=== PATIENT | female | born 1960 ===

== ENCOUNTER 2021-07-02 12:42 | Day surgery (SDC) | payer OTHER ==
--- NOTE | 2021-07-02 10:36 | PCM.PREANE ---
Preanesthetic Assessment - Procedure Proposed Procedure: Cyst excision of anterior chest - Anesthesia/Transfusion/Family Hx Anesthesia History: Prior Anesthesia Without Reaction Family History of Anesthesia Reaction: No Transfusion History: No Prior Transfusion(s) Intubation History: Unknown - Review of Systems General: No Symptoms Pulmonary: No Symptoms Cardiovascular: No Symptoms Gastrointestinal: No Symptoms Neurological: No Symptoms Other: Reports: Depression - Physical Assessment NPO Status Date: 07/01/21 NPO Status Time: 20:00 Vital Signs: BP 139/79 HR 44 98% 16 98.7 Height: 1.6 m Weight: 65 kg ASA Class: 2 Mental Status: Alert & Oriented x3 Airway Class: Mallampati = 2 Dentition: Reports: Caries Thyro-Mental Finger Breadths: 3 Mouth Opening Finger Breadths: 3 ROM/Head Extension: Full Lungs: Clear to Auscultation, Normal Respiratory Effort Cardiovascular: Regular Rate, Regular Rhythm, No Murmurs - Allergies Allergies/Adverse Reactions: Allergies Allergy/AdvReac Type Severity Reaction Status Date / Time No Known Allergies Allergy Verified 02/09/16 11:23 - Acknowledgements Anesthesia Type Planned: MAC Pt an Appropriate Candidate for the Planned Anesthesia: Yes Alternatives and Risks of Anesthesia Discussed w Pt/Guardian: Yes Pt/Guardian Understands and Agrees with Anesthesia Plan: Yes PreAnesthesia Questionnaire HEENT History: Reports: Allergic Rhinitis, Impaired Vision Cardiovascular History: Reports: Hypertension, Other (See Below) Other Cardiovascular History: hx hypokalemia Respiratory History: Reports: None Gastrointestinal History: Reports: None Genitourinary History: Reports: None CAFE AIDE History: Reports: Other OB/BYN History: x 2 Musculoskeletal History: Reports: Other (See Below) Other Musculoskeletal History: fusion to neck C2; Neurological History: Reports: None Psychiatric History: Reports: Anxiety, Depression Endocrine/Metabolic History: Reports: None Hematologic History: Reports: Anemia Immunologic History: Reports: None Oncologic (Cancer) History: Reports: None Dermatologic History: Reports: Other (See Below) Other Dermatologic History: soft tissue mass anterior chest - Past Surgical History HEENT Surgical History: Reports: Oral Surgery, Other (See Below) (jaw surgery) Neurological Surgical History: Reports: C-Spine Musculoskeletal Surgical History: Reports: Other (See Below) (wrist closed reduction) - SUBSTANCE USE Tobacco Use Status *Q: Never Tobacco User Tobacco Use Within Last Twelve Months: No Second Hand Smoke Exposure: No Days Per Week of Alcohol Use: 0 Number of Drinks Per Day: 0 Total Drinks Per Week: 0 Recreational Drug Use History: No - HOME MEDS Home Medications: Home Meds Calcium Carb, Citrate/Vit D3 [Calcium + D3 ER Tablet] 1 tab PO DAILY 02/09/16 [History] Lisinopril/Hydrochlorothiazide [Lisinopril-Hctz 10-12.5 mg Tab] 10 - 12.5 mg PO DAILY 02/09/16 [History] Multivitamins [Tab-A-Bang] 1 tab PO DAILY 02/09/16 [History] Potassium 99 mg PO DAILY 02/09/16 [History] - CURRENT (IN HOUSE) MEDS Current Meds: Current Medications Lactated Ringer's (Ringers, Lactated) 1,000 mls @ 125 mls/hr IV ASDIRECTED DONTE Stop: 07/02/21 23:00 Lidocaine/Sodium Bicarbonate (Lidocaine 1%/Sod Bicarbonate In Ns 8.4% 1 Ml Syringe) 0.25 ml IDERM ONETIME PRN PRN Reason: Prior to IV Start Stop: 07/02/21 18:00 Sodium Chloride (Sodium Chloride 0.9% 10 Ml Syringe) 10 ml FLUSH ASDIRECTED PRN PRN Reason: Keep Vein Open Stop: 07/02/21 18:00 Discontinued Medications Lidocaine/Epinephrine (Lidocaine 1% With Epinephrine 1:100,000 10 Ml Mdv) Confirm Administered Dose 20 ml .ROUTE .STK-MED ONE Stop: 07/02/21 10:23
--- NOTE | 2021-07-02 12:32 | PCM48HPAN ---
Post Anesthesia Note - EVALUATION WITHIN 48HRS OF ANESTHETIC Vital Signs in Normal Range: Yes Patient Participated in Evaluation: Yes Respiratory Function Stable: Yes Airway Patent: Yes Cardiovascular Function Stable: Yes Hydration Status Stable: Yes Pain Control Satisfactory: Yes Nausea and Vomiting Control Satisfactory: Yes Mental Status Recovered: Yes
--- NOTE | 2021-07-02 12:34 | PCM.PRNOTE ---
- Free Text/Narrative Note: Date: 07/02/2021 Operation: excision of anterior chest wall sebaceous cyst Surgeon: Vasu Dickey MD Findings: 3 x 3 x 2 cm sebaceous cyst containing caseous material overlying the inferior portion of the sternum. Cyst capsule sent for pathology. Detailed Report: The patient was taken to the operating room and placed on the table in supine position. Timeout was performed and monitored anesthesia care was initiated. The chest was prepped and draped in usual sterile fashion. 0.5% Marcaine, 5 cc, was injected intradermally over the site of the lesion. This lesion was at the anterior midline overlying the inferior sternum. The was felt to be a 3 x 3 cm cystic lesion. A 3 cm longitudinally oriented incision was made over the lesion through skin using a fifteen blade scalpel. Skin flaps were developed with scissors, and the cyst capsule ruptured. Caseous material was expressed. The cyst capsule was then excised sharply with scissors. Hemostasis was satisfactory after directed application of monopolar energy. The cyst capsule was sent for pathology. The wound was closed in layers with interrupted deep dermal 3-0 Vicryl sutures and running subcuticular 4-0 Vicryl. The wound was dressed with Dermabond and covered with dry gauze and Tegaderm. The patient tolerated the procedure well.
[~2021-07-02 12:42] MED LIST: Ketorolac 30 MG/ML SDV ONE; Lactated Ringers 1,000 ML IV SCH; Lidocaine 1% 4 ML ONE; Lidocaine 1% with EPINEPHrine 1:100,000 10 ML MDV ONE; Lidocaine 1%/Sod Bicarbonate in NS 8.4% 1 ML Syringe IDERM PRN; Midazolam 1 MG/ML 2 ML SDV ONE; Ondansetron 4 MG/2 ML SDV ONE; Propofol 200 MG/20 ML SDV ONE; Sodium Chloride 0.9% 10 ML Syringe FLUSH PRN; fentaNYL 100 MCG/2 ML SDV ONE
[2021-07-03 06:16] VITALS: BP 169/92; PULSE 70
== END 2021-07-02 13:12 | disposition home or self-care (01) ==
LOC: JD.SDS 12:42
PROVIDERS: ATTEND Surgery
DX: L72.3 Sebaceous cyst (principal); D64.9 Anemia, unspecified; F41.9 Anxiety disorder, unspecified; F32.A Depression, unspecified; I10 Essential (primary) hypertension; Z88.2 Allergy status to sulfonamides; Z79.899 Other long term (current) drug therapy; Z98.890 Other specified postprocedural states
CPT/HCPCS: 11403; J1885; J2250; J2405; J2704; J3010; J7120; 00400